=== PATIENT | male | born 1980 | race Caucasian/White ===

== ENCOUNTER → 2016-06-14 | Outpatient (CLI) | payer OTHER ==
[~2016-06-14] MED LIST: AMPICILLIN500 MG PO; COUMADIN7.5 M1 PO; DAYPRO600 M1 PO; ENALAPRIL2.5 MG PO; ENALAPRIL5 MG PO; MEDROL DOSEPAK4 MG PO; NORFLEX100 MG PO; SKELAXIN800 MG PO; VICO75300 PO; VICODIN 5/500 505 MG PO
== END | disposition home or self-care (01) ==
LOC: CARD 07:23
DX: I07.1 Rheumatic tricuspid insufficiency (principal); Z95.2 Presence of prosthetic heart valve; I34.0 Nonrheumatic mitral (valve) insufficiency

== ENCOUNTER → 2016-08-12 | Outpatient (CLI) | payer OTHER ==
[2016-08-12 12:04] LABS: BASO % 0.4 % (0.0-1.0); EOS # 0.2 10*3/uL (0.0-0.4); HEMATOCRIT 44.4 % (42.0-52.0); HEMOGLOBIN 15.1 g/dl (14.0-18.0); LYMPH # 1.5 10*3/uL (1.3-4.4); LYMPH % 28.2 % (27.0-41.0); MEAN CELL VOLUME 87.2 fl (80.0-94.0); MEAN CORPUSCULAR HGB 29.7 pg (27.0-31.0); MEAN PLATELET VOLUME 10.4 fl (9.6-12.3); MONO # 0.4 10*3/uL (0.1-1.0); MONO % 7.3 % (3.0-9.0); NEUT # 3.2 10*3/uL (2.3-7.9); NEUT % 60.9 % (47.0-73.0); PLATELET COUNT AUTOMATED 215 10*3/uL (130-400); RED BLOOD COUNT 5.09 10*6/uL (4.50-5.90); RED CELL DISTRI WIDTH 13.2 % (0-14.5); WHITE BLOOD COUNT 5.3 10*3/uL (4.8-10.8)
[2016-08-12 12:32] LABS: INTERNATIONAL NORM RATIO 2.3 (2.0-3.5); PROTHROMBIN TIME 26.1 SECONDS (9.0-12.4)
== END | disposition home or self-care (01) ==
LOC: LAB 11:44
PROVIDERS: Family Medicine
DX: I71.2 Thoracic aortic aneurysm, without rupture (principal); I42.9 Cardiomyopathy, unspecified; Z95.2 Presence of prosthetic heart valve; Z79.01 Long term (current) use of anticoagulants

== ENCOUNTER → 2016-09-13 | Outpatient (CLI) | payer OTHER ==
[2016-09-13 17:05] LABS: INTERNATIONAL NORM RATIO 2.9 (2.0-3.5)
== END | disposition home or self-care (01) ==
LOC: LAB 16:00
PROVIDERS: Specialist
DX: I71.2 Thoracic aortic aneurysm, without rupture (principal); I42.9 Cardiomyopathy, unspecified; Z95.2 Presence of prosthetic heart valve; Z79.01 Long term (current) use of anticoagulants

== ENCOUNTER → 2016-10-16 | Outpatient (CLI) | payer OTHER ==
[2016-10-16 08:51] LABS: INTERNATIONAL NORM RATIO 2.1 (2.0-3.5); PROTHROMBIN TIME 22.9 SECONDS (9.0-12.4)
== END | disposition home or self-care (01) ==
LOC: LAB 07:54
PROVIDERS: Family Medicine
DX: Z79.01 Long term (current) use of anticoagulants (principal)

== ENCOUNTER 2016-10-29 10:25 | Emergency (ER) | payer OTHER ==
[~2016-10-29] VITALS: Wt 113.4 kg
[2016-10-29 10:48] VITALS: BP 133/104
[2016-10-29] MEDS ORDERED: CARVEDILOL6.25 MG PO (10:49)
[2016-10-29 11:38] LABS: BASO # 0.1 10*3/uL (0.0-0.1); BASO % 0.7 % (0.0-1.0); EOS # 0.2 10*3/uL (0.0-0.4); EOS % 2.4 % (1.0-4.0); HEMATOCRIT 46.1 % (42.0-52.0); HEMOGLOBIN 15.7 g/dl (14.0-18.0); LYMPH # 1.2 10*3/uL (1.3-4.4); LYMPH % 16.5 % (27.0-41.0); MEAN CELL VOLUME 86.7 fl (80.0-94.0); MEAN CORPUSCULAR HGB 29.5 pg (27.0-31.0); MEAN CORPUSCULAR HGB CONC 34.1 g/dl (33.0-37.0); MEAN PLATELET VOLUME 10.6 fl (9.6-12.3); MONO # 0.9 10*3/uL (0.1-1.0); MONO % 11.3 % (3.0-9.0); NEUT # 5.2 10*3/uL (2.3-7.9); NEUT % 68.8 % (47.0-73.0); PLATELET COUNT AUTOMATED 200 10*3/uL (130-400); RED BLOOD COUNT 5.32 10*6/uL (4.50-5.90); RED CELL DISTRI WIDTH 13.6 % (0-14.5); WHITE BLOOD COUNT 7.5 10*3/uL (4.8-10.8)
[2016-10-29 11:48] LABS: INTERNATIONAL NORM RATIO 1.9 (2.0-3.5)
[2016-10-29 11:54] LABS: ALBUMIN 3.8 gm/dl (3.1-4.5); ALKALINE PHOSPHATASE 97 U/L (45-117); BILIRUBIN, TOTAL 1.3 mg/dl (0.2-1.0); BUN 14 mg/dl (7-24); CARBON DIOXIDE 27 mmol/L (21-32); CHLORIDE 104 mmol/L (98-107); EST GLOM FILT AFRICAN AMERICAN > 60 ml/min; GLUCOSE 93 mg/dL (65-99); SGOT/AST 29 IU/L (3-35); SGPT/ALT 22 U/L (12-78); SODIUM 139 mmol/L (136-145); URIC ACID 9.1 mg/dL (3.5-7.2)
[2016-10-29] MEDS ORDERED: PREDNISONE50 MG PO (12:17)
[2016-10-29] MEDS ORDERED: HYDROCODONE BIT1 T11 PO (12:24)
== END 2016-10-29 12:27 | disposition home or self-care (01) ==
LOC: ED 10:25
PROVIDERS: Emergency Medicine; Registered Nurse
DX: M10.9 Gout, unspecified (principal); F17.200 Nicotine dependence, unspecified, uncomplicated; Z79.02 Long term (current) use of antithrombotics/antiplatelets

== ENCOUNTER → 2016-12-25 | Outpatient (CLI) | payer OTHER ==
[~2016-12-25] MED LIST changes: +CARVEDILOL6.25 MG PO; +HYDROCODONE BIT1 T11 PO; +PREDNISONE50 MG PO
[2016-12-25 09:20] LABS: PROTHROMBIN TIME 46.9 SECONDS (9.0-12.4)
== END | disposition home or self-care (01) ==
LOC: LAB 08:23
PROVIDERS: Family Medicine
DX: Z51.81 Encounter for therapeutic drug level monitoring (principal); Z79.01 Long term (current) use of anticoagulants

== ENCOUNTER → 2017-01-28 | Outpatient (CLI) | payer OTHER ==
[2017-01-28 14:16] LABS: INTERNATIONAL NORM RATIO 3.7 (2.0-3.5)
== END | disposition home or self-care (01) ==
LOC: LAB 13:26
PROVIDERS: Family Medicine
DX: M10.9 Gout, unspecified (principal); Z79.01 Long term (current) use of anticoagulants

== ENCOUNTER → 2017-02-13 | Outpatient (CLI) | payer OTHER ==
[2017-02-13 08:17] LABS: BASO # 0.1 10*3/uL (0.0-0.1); EOS # 0.2 10*3/uL (0.0-0.4); EOS % 3.6 % (1.0-4.0); HEMATOCRIT 45.6 % (42.0-52.0); HEMOGLOBIN 15.6 g/dl (14.0-18.0); LYMPH # 1.4 10*3/uL (1.3-4.4); LYMPH % 27.3 % (27.0-41.0); MEAN CELL VOLUME 87.9 fl (80.0-94.0); MEAN CORPUSCULAR HGB 30.1 pg (27.0-31.0); MEAN CORPUSCULAR HGB CONC 34.2 g/dl (33.0-37.0); MEAN PLATELET VOLUME 10.6 fl (9.6-12.3); MONO # 0.5 10*3/uL (0.1-1.0); NEUT # 2.9 10*3/uL (2.3-7.9); NEUT % 57.7 % (47.0-73.0); PLATELET COUNT AUTOMATED 231 10*3/uL (130-400); RED BLOOD COUNT 5.19 10*6/uL (4.50-5.90); RED CELL DISTRI WIDTH 13.3 % (0-14.5)
[2017-02-13 08:50] LABS: ALBUMIN 3.7 gm/dl (3.1-4.5); ALKALINE PHOSPHATASE 90 U/L (45-117); BILIRUBIN, DIRECT 0.1 mg/dL (0.0-0.2); BUN 12 mg/dl (7-24); CHLORIDE 106 mmol/L (98-107); CHOLESTEROL 265 mg/dL (<200); HDL CHOLESTEROL 43 mg/dl (40-60); LDL CHOLESTEROL 175 mg/dL (9-159); SGOT/AST 37 IU/L (3-35); SGPT/ALT 26 U/L (12-78); SODIUM 139 mmol/L (136-145); TOTAL PROTEIN 7.8 gm/dL (6.4-8.2); TRIGLYCERIDES 237 mg/dl (<150); VLDL CHOLESTEROL 47 mg/dL (6-40)
== END | disposition home or self-care (01) ==
LOC: LAB 07:34
PROVIDERS: Family Medicine
DX: R63.5 Abnormal weight gain (principal); R79.89 Other specified abnormal findings of blood chemistry; Z95.2 Presence of prosthetic heart valve

== ENCOUNTER → 2017-03-24 | Outpatient (CLI) | payer OTHER ==
[2017-03-24 15:57] LABS: INTERNATIONAL NORM RATIO 3.1 (2.0-3.5)
== END | disposition home or self-care (01) ==
LOC: LAB 15:03
PROVIDERS: Family Medicine
DX: Z79.01 Long term (current) use of anticoagulants (principal)

== ENCOUNTER → 2017-04-21 | Outpatient (CLI) | payer OTHER ==
[2017-04-21 13:36] LABS: INTERNATIONAL NORM RATIO 1.9 (2.0-3.5)
== END ==
LOC: LAB 12:51
PROVIDERS: Family Medicine
DX: Z79.01 Long term (current) use of anticoagulants (principal)

== ENCOUNTER → 2017-05-08 | Outpatient (CLI) | payer OTHER ==
[2017-05-08 08:40] LABS: INTERNATIONAL NORM RATIO 2.3 (2.0-3.5)
== END | disposition home or self-care (01) ==
LOC: LAB 07:47
PROVIDERS: Family Medicine
DX: Z79.01 Long term (current) use of anticoagulants (principal)

== ENCOUNTER → 2017-06-30 | Outpatient (CLI) | payer OTHER ==
[2017-06-30 08:50] LABS: INTERNATIONAL NORM RATIO 3.4 (2.0-3.5)
== END | disposition home or self-care (01) ==
LOC: LAB 07:51
PROVIDERS: Family Medicine
DX: Z51.81 Encounter for therapeutic drug level monitoring (principal); Z79.01 Long term (current) use of anticoagulants